=== PATIENT | female | born 1975 | race Caucasian/White ===

== ENCOUNTER 2023-12-14 11:05 | Emergency (ER) | payer SELFPAY ==
[2023-12-14 11:13] VITALS: BP 138/77; PULSE 72; RESP 18; TEMP 98; BMI 28.5
== END 2023-12-14 12:39 | disposition home or self-care (01) ==
LOC: JERFT 11:05
DX: H61.22 Impacted cerumen, left ear (principal)
CPT/HCPCS: 99283-25